=== PATIENT | female | born 1990 | race Caucasian/White ===

== ENCOUNTER 2021-08-24 23:31 | Emergency (ER) | payer SELFPAY ==
[2021-08-25] MEDS ORDERED: Sodium Chloride 0.9% 1,000 ML ONE (00:11)
[2021-08-25] MEDS ORDERED: Ondansetron PF 4 MG/2 ML Vial ONE (00:11)
[2021-08-25] MEDS ORDERED: cefTRIAXone\\ROCEPHIN 2 GM VIAL ONE (00:11)
[2021-08-25] MEDS ORDERED: Pantoprazole 40 MG VIAL ONE (00:11)
[2021-08-25] MEDS ORDERED: Sodium Chloride 0.9% 100 ML ONE (00:11)
[2021-08-25 00:41] LABS: Bilirubin Negative (Negative); Blood, Urine Negative (Negative); Clarity Clear (Clear); Glucose, Urine (Dipstick) Negative (Negative); Ketone, Urine Trace mg/dL (Negative); Leukocyte Negative (Negative); Nitrite Negative (Negative); Protein, Urine (Dipstick) Negative (Neg-Trace); Urobilinogen 0.2 mg/dL (Less than 2); pH, Urine 5.5 (5.0-9.0)
[2021-08-25 00:44] LABS: Pregnancy Test - Urine (BHCG) Negative (Negative); Pregu Control Bar Appear? YES (CONTROL BAR); Specific Gravity 1.022 (1.002-1.036)
[2021-08-25 00:45] LABS: Pregu Control Background? CLEAR/WHITE (CLR/WHITE)
[2021-08-25 01:02] LABS: ALT (SGPT) 29 U/L (8-55); AST (SGOT) 35 U/L (5-34); Alkaline Phosphatase 49 U/L (40-110); Anion Gap 13 mmol/L (10-20); BUN (Urea Nitrogen) 12 mg/dL (7.0-18.7); Bilirubin, Total 0.7 mg/dL (0.2-1.2); CK (CPK) 70 U/L (29-168); Calc. Creatinine Clearance 0 mL/min (70-130); Calcium 8.3 mg/dL (7.8-10.44); Carbon Dioxide 24 mmol/L (22-29); Chloride 107 mmol/L (98-107); Globulin 2.1 g/dL (2.4-3.5); Glucose 94 mg/dL (70-105); Potassium 3.7 mmol/L (3.5-5.1); Protein, Total 6.1 g/dL (6.0-8.3); Sodium 140 mmol/L (136-145)
[2021-08-25 01:12] LABS: #Eosinphils 0.1 thou/uL (0.0-0.7); #Lymphocytes 1.2 thou/uL (1.20-3.40); #Monocytes 0.3 thou/uL (0.11-0.59); #Neutrophils 1.6 thou/uL (1.40-6.50); %Basophils 0.4 % (0.0-1.0); %Eosinophils 1.7 % (0.0-10.0); %Lymphocytes 36.5 % (21.0-51.0); %Monocytes 10.4 % (0.0-10.0); %Neutrophils 50.9 % (42.0-75.0); Hemoglobin 14.7 g/dL (12.0-16.0); Mean Corpuscular HGB CONC 34.8 g/dL (32.0-36.0); Mean Corpuscular Hemoglobin 30.9 pg (27.0-31.0); Mean Corpuscular Volume 88.8 fL (78.0-98.0); Mean Platelet Volume 8.3 fL (7.4-10.4); Platelet Count 80 thou/uL (130-400); Platelet Morphology Comment Appears Decreased; RBC Distribution Width 10.4 % (11.5-14.5); Red Blood Cell (RBC) Count 4.77 mill/uL (4.20-5.40); White Blood Cell (WBC) Count 3.2 thou/uL (4.8-10.8)
[2021-08-25] MEDS ORDERED: Metoclopramide HCl 10 MG/2 ML VIAL ONE ×2 (01:13→02:41)
[2021-08-25] MEDS ORDERED: Dextrose 5 % And 0.9 % NaCl 1,000 ML ONE (02:41)
[2021-08-25] MEDS ORDERED: Promethazine HCl 25 MG/ML VIAL ONE (02:41)
== END 2021-08-25 04:35 | disposition home or self-care (01) ==
LOC: MADERS 23:31
DX: N12 Tubulo-interstitial nephritis, not specified as acute or chronic (principal); B27.90 Infectious mononucleosis, unspecified without complication
CPT/HCPCS: 71045; 80053; 81003; 81025; 82550; 83880; 84484; 85025; 85379; 93005; 94760; 96361; 96365; 96367; 96375; 96376; C9113; J0696; J2405; J2550; J2765; J3490; J7042; J7050

== ENCOUNTER 2022-12-07 16:35 | Emergency (ER) | payer SELFPAY | END 2022-12-07 18:00 | disposition home or self-care (01) | LOC: MADERS 16:35 | DX: S93.401A Sprain of unspecified ligament of right ankle, initial encounter (principal); F17.210 Nicotine dependence, cigarettes, uncomplicated; X58.XXXA Exposure to other specified factors, initial encounter ==